=== PATIENT | female | born 1955 | race Caucasian/White ===

== ENCOUNTER 2023-10-21 07:12 | Inpatient (IN) | payer MEDICARE, MEDICAID, SELFPAY ==
[2023-10-21] VITALS (25 sets, daily range): BP systolic 137–195; BP diastolic 71–136; PULSE 78–96; RESP 15–40; TEMP 36.4–36.9; O2SAT 80–98; BMI 25.6
--- NOTE | 2023-10-21 07:17 | ED_ITS ---
HPI - Abdominal Pain General Chief Complaint: Shortness of Breath/Dyspnea Stated Complaint: abd pain, has copd not breathing well Time Seen by Provider: 10/21/23 07:15 History of Present Illness HPI narrative: Patient is a 68-year-old female past medical history of COPD intermittently on 2 L nasal cannula, comes into the ED from home for evaluation of multiple complaints. States that she has been having shortness of breath ongoing and persistent for the past 1 month. Nothing making it better or worse. States that she has not been using supplemental oxygen at home as needed, states that she has not been ?taking care of herself due to the fact that her approximately 1 month ago. States that she also started developing right upper quadrant abdominal pain yesterday. Describes as achy nothing making it better or worse. She denies any headache visual disturbances chest pain fever chills nausea vomiting or any other GI/ symptoms at this time. Not on any blood thinners no recent trauma no falls. No recent sick contacts. Patient is stating that she used to take ipratropium for her COPD but stopped due to the fact that steroids ?make her crazy. Patient does note that she does feel overall weak. Related Data Home Medications Medication Instructions Recorded Confirmed aspirin 325 mg tablet,delayed 325 mg PO QDAY ##0 12/13/10 release VITAMIN D (Vitamin D3) 1,000 unit PO QDAY ##0 04/07/11 triamterene 50 mg capsule 75 mg PO QDAY ##0 04/10/11 (Dyrenium) POTASSIUM (#POTASSIUM) 99 mg PO Q DAY ##0 07/29/11 Previous Rx's Medication Instructions Recorded levalbuterol HCl 0.63 mg/3 mL 0.63 mg (3 mL) INH Q8H PRN ##100 12/26/11 solution for nebulization (Xopenex) IPRATROPIUM BROMIDE (#ATROVENT) 0.5 mg INH QID ##1 12/27/11 triamterene 75 1 tab PO Q DAY ##30 04/24/12 mg-hydrochlorothiazide 50 mg tablet (Maxzide) DILTIAZEM HCL 60 mg PO BID ##30 04/25/12 albuterol sulfate 90 mcg/actuation 2 puff INH SEE INSTRUCTIONS ##8.5 09/17/12 aerosol inhaler (Proventil HFA) Allergies Allergy/AdvReac Type Severity Reaction Status Date / Time Penicillin Allergy Severe FAINTING Uncoded 05/31/17 12:09 Tetanus Toxoid Allergy Mild Uncoded 05/31/17 12:09 CYMBALTA Allergy Unknown Uncoded 05/31/17 12:09 Duloxetine Allergy Unknown Uncoded 05/31/17 12:09 Review of Systems Review of Systems Narrative: HEENT: Denies headache, eye drainage, eye irritation, head trauma, sore throat, voice change Cardiovascular: Denies any chest pain, palpitations, shortness of breath, tachycardia Respiratory: Positive for shortness of breath GI/: Positive for abdominal pain, Denies any nausea, vomiting, diarrhea, bright red blood per rectum, melanotic stools, urinary frequency, urinary retention, dysuria, hematuria MSK: Denies any joint pain, muscle pains, swelling Skin: Denies any rashes, lesions, discoloration Neuro: Denies any headache, lightheadedness, dizziness, fainting, weakness Psych: Denies SI/HI Exam Initial Vital Signs Initial Vital Signs: Vital Signs Pulse Rate 91 H 10/21/23 07:18 Blood Pressure 137/90 10/21/23 07:18 Pulse Oximetry 93 10/21/23 07:18 Course Orders Ordered: ED Orders 10/21/23 07:20 XR chest 1V Stat Complete Blood Count AUTO DIFF Stat Comprehensive Metabolic Panel Stat Lactate (Lactic Acid) Stat Lipase Stat MAG [Magnesium] Stat NT-proBNP (BNP-Adult 18+) Stat Prothrombin Time INR Stat Troponin I Stat EKG-12 Lead Stat Measure peak expiratory flow ONCE RT Consult Eval and Treat NOW 10/21/23 07:27 CT abdomen pelvis w con Stat 10/21/23 07:56 Cortisol Random Stat PHOS [Phosphorous] Stat Sodium Urine Random Stat TSH [Thyroid Stimulating Hormone] Stat Uric Acid Stat 10/21/23 09:17 US abdomen limited Stat Discontinued Medications Albuterol (Albuterol 2.5 Mg/3 Ml Neb (Adult)) 2.5 mg INH NOW ONE Stop: 10/21/23 07:27 Last Admin: 10/21/23 07:37 Dose: 2.5 mg Documented By: CTS Magnesium Sulfate (Magnesium Sulfate) 2 gm in 50 mls @ 150 mls/hr IV NOW ONE Stop: 10/21/23 07:50 Last Infusion: 10/21/23 08:00 Dose: Infused Documented By: ADDY Co-signed By: TYLER Admin: 10/21/23 07:37 Dose: 150 mls/hr Documented By: TYLER Co-signed By: ADDY Sodium Chloride (Normal Saline 0.9%) 1,000 mls @ 500 mls/hr IV BOLUS ONE Stop: 10/21/23 09:59 Last Infusion: 10/21/23 10:44 Dose: Infused Documented By: Admin: 10/21/23 08:17 Dose: 500 mls/hr Documented By: ADDY Morphine Sulfate (Morphine 4 Mg/Ml Inj) 2 mg IV NOW ONE Stop: 10/21/23 11:25 Vital Signs Vital signs: Vital Signs - 8 hr 10/21/23 07:18 10/21/23 07:18 10/21/23 07:20 Temperature 98.5 F Pulse Rate 91 H 90 Respiratory Rate 22 Blood Pressure 137/90 137/90 Pulse Oximetry 93 92 Oxygen Delivery Method Room Air 10/21/23 07:30 10/21/23 07:31 10/21/23 07:31 Temperature Pulse Rate 84 84 Respiratory Rate 40 H 29 H Blood Pressure 178/91 H Pulse Oximetry 95 96 Oxygen Delivery Method 10/21/23 08:01 10/21/23 08:08 10/21/23 08:09 Temperature Pulse Rate 80 78 Respiratory Rate 24 Blood Pressure Pulse Oximetry 96 Oxygen Delivery Method Room Air 10/21/23 08:09 10/21/23 08:27 10/21/23 08:27 Temperature Pulse Rate 84 Respiratory Rate 24 Blood Pressure 174/118 H 180/84 H Pulse Oximetry 92 Oxygen Delivery Method 10/21/23 08:30 10/21/23 08:30 10/21/23 09:00 Temperature Pulse Rate 79 Respiratory Rate 17 Blood Pressure 188/71 H 177/82 H Pulse Oximetry 94 Oxygen Delivery Method 10/21/23 09:00 10/21/23 09:11 10/21/23 09:11 Temperature Pulse Rate 79 86 Respiratory Rate 26 H Blood Pressure 179/85 H Pulse Oximetry 96 95 Oxygen Delivery Method 10/21/23 09:30 10/21/23 09:30 10/21/23 10:00 Temperature Pulse Rate 78 85 Respiratory Rate 19 Blood Pressure 186/136 H Pulse Oximetry 95 95 Oxygen Delivery Method 10/21/23 10:30 10/21/23 10:30 Temperature Pulse Rate 82 Respiratory Rate 15 Blood Pressure 195/87 H Pulse Oximetry 98 Oxygen Delivery Method MDM - Abdominal Pain Differential Diagnosis Differential diagnosis: Likely abdominal pain, constipation, diverticulitis, small bowel obstruction and other (Cholecystitis, electrolyte abnormality, urinary tract infection, COPD exacerbation) Medical Records Attestation: I reviewed the patient's medical records. Lab Data Attestation: I reviewed the patient's lab results. 10/21/23 07:20 10/21/23 07:20 Labs: Lab Results 10/21/23 10/21/23 10/21/23 Range/Units 07:20 07:21 08:25 WBC 9.6 (4.5-11.0) X10^3/uL RBC 5.03 (4.0-5.2) X10^6/uL Hgb 14.5 (12.0-16.0) g/dL Hct 41.8 (36-46) % MCV 83.2 (80-100) fL MCH 28.9 (26-34) PG MCHC 34.7 (30-36) % RDW 13.2 (11.6-14.8) % Plt Count 217 (150-400) X10^3/uL Neut % (Auto) 79.0 H (50-75) % Lymph % (Auto) 10.9 L (25-40) % [place] % (Auto) 9.1 (3-14) % Eos % (Auto) 0.5 L (2-4) % Baso % (Auto) 0.5 (0-2) % Neut # (Auto) 7600 H (5190-5450) /uL Lymph # (Auto) 1000 L (8152-3968) /uL [place] # (Auto) 900 (0-900) /uL Eos # (Auto) 0 (0-450) /uL Baso # (Auto) 100 (0-100) /uL PT 11.3 (9.4-12.5) SECONDS INR 1.0 (0.9-1.3) Sodium 122 L (137-145) mmol/L Potassium 3.0 L (3.4-5.1) mmol/L Chloride 85 L (98-107) mmol/L Carbon Dioxide 26 (22-32) mmol/L BUN 9 (7-17) mg/dL Creatinine 0.57 (0.52-1.04) mg/dL Estimated GFR > 60 (>60) mL/min BUN/Creatinine Ratio 15.8 (6-22) Glucose 128 H (80-110) mg/dL Lactate 1.1 (0.7-2.1) mmol/L Uric Acid 3.0 (2.5-6.2) mg/dL Calcium 9.3 (8.4-10.2) mg/dL Phosphorus 2.7 L (2.8-4.1) mg/dL Magnesium 1.8 (1.6-2.3) mg/dL Total Bilirubin 1.1 (0.2-1.3) mg/dL AST 37 H (14-36) IU/L ALT 20 (<35) IU/L Alkaline Phosphatase 73 (38-126) U/L Troponin I < 0.012 (0.01-0.034) ng/mL NT-Pro-B Natriuret Pep 179 H (<125) pg/mL Total Protein 7.5 (6.3-8.2) g/dL Albumin 4.7 (3.5-5.0) g/dL Globulin 2.8 (1.7-4.1) g/dL Albumin/Globulin Ratio 1.7 (1.0-2.8) Lipase 44 (23-300) U/L TSH 1.92 (0.47-4.68) uIU/mL Random Cortisol 24.8 ug/dL Ur Random Sodium < 5 L (30-90) mmol/L Point of care testing: Urine Dip Bedside Urine Glucose Negative Bedside Urine Bilirubin - Negative Bedside Urine Ketone - Negative Urine Specific [place] 1.005 Bedside Urine Occult Blood - Negative Bedside Urine pH 7.0 Bedside Urine Protein - Negative Bedside Urine Urobilinogen - Negative Bedside Urine Nitrite - Negative Bedside Urine Leukocytes - Negative Esterase ECG Data Attestation: I personally reviewed and interpreted this ECG as follows: Interpretation: EKG interpreted by ED physician, sinus at 86 beats per minute, QTC 459, normal axis, nonspecific ST changes, no STEMI MDM Narrative Medical decision making narrative: Patient is a 68-year-old female past medical history of COPD on intermittent oxygen presenting for multiple complaints including right upper quadrant abdominal pain and persistent shortness of breath for approximately 1 month. This was when her . States that she has not been taking care of herself as much as she should?. Patient stating that she does have prescribed O2 but does not take this at home, Chest x-ray showing no acute cardiopulmonary abnormality. On initial exam patient not in any acute respiratory distress, requiring supplemental oxygen, Lab work was showing patient hyponatremic at 122, patient appears to be euvolemic. CT scan and ultrasound ultrasound cholelithiasis with CBD dilation without signs of cholecystitis. Therefore will hold off on any antibiotics, however given hyponatremia and CBD dilation with right upper quadrant abdominal pain will require admission for electrolyte management and possible surgical intervention pending any additional imaging. The patient's management plan was discussed Dr. Trevizo, who agrees to admit the patient to their service and assumes care of this patient at this time. Full admission orders will be placed by the primary team. Discharge Plan Departure Patient Disposition: Admitted As Inpatient Clinical Impression: Acute hyponatremia, Dilated cbd, acquired Cholelithiasis Qualifiers: Cholelithiasis location: other site Biliary obstruction: without biliary obstruction Qualified Code(s): K80.80 - Other cholelithiasis without obstruction
--- NOTE | 2023-10-21 07:20 | DI.RAD.S_ITS ---
PROCEDURE: XR CHEST 1V INDICATIONS: Shortness of breath TECHNIQUE: One view of the chest was acquired. COMPARISON: None. FINDINGS: Surgical changes and devices: None. Lungs and pleura: Lungs are clear. No pleural effusions or pneumothorax. Mediastinum: Mediastinal contours appear normal. Heart size is normal. Aortic arch is calcified indicating atherosclerosis. Bones and chest wall: No suspicious bony lesions. Overlying soft tissues appear unremarkable. IMPRESSION: No acute cardiopulmonary abnormality is seen. Approved by: Heather Cedillo M.D.,Ph.D. on 10/21/2023 at 7:47
--- NOTE | 2023-10-21 07:23 | EKG_ITS ---
[address] [address] Test Date: 2023-10-21 Pat Name: Ashleigh Quintero Department: Room: Gender: Female [employer] Vehicle [employer]r: ZORA : 1955 Requested By: Order Number: [id number] Reading MD: Nahun Hallman MD Measurements Intervals [place] Rate: 86 P: 80 AL: 148 QRS: 56 QRSD: 84 T: 59 QT: 384 QTc: 459 Interpretive Statements Normal sinus rhythm Electronically Signed On 10-25-2023 8:33:07 PDT by Nahun Hallman MD
--- NOTE | 2023-10-21 07:27 | DI.CT.S_ITS ---
PROCEDURE: CT ABDOMEN PELVIS W CON INDICATIONS: abd pain, worse to ruq TECHNIQUE: After the administration of intravenous contrast, axial sections acquired from the lung bases to the pubic symphysis. Coronal and sagittal reformats were performed. For radiation dose reduction, the following was used: automated exposure control, adjustment of mA and/or kV according to patient size. COMPARISON: None. FINDINGS: Image quality: Streak metal artifact from posterior spinal fusion limits evaluation of surrounding soft tissue. Lower Chest: No significant findings. ABDOMEN: Liver: Multiple subcentimeter hepatic hypodensities are too small to characterize, probable cyst versus hemangioma. Gallbladder: Gallbladder is distended. No radiodense stones are visualized. Biliary ducts: No intrahepatic biliary ductal dilatation. Common bile duct is dilated measuring up to 9 mm in caliber. Pancreas: No ductal dilation. Spleen: Size is within normal limits. Adrenal Glands: No adrenal nodules. Kidneys and Ureters: No hydronephrosis. No solid mass. No complex renal cystic lesion which requires follow up. Stomach and Bowel: Normal colonic caliber, without significant wall thickening. Normal caliber appendix in the right lower quadrant. Peritoneum: No abnormal intraperitoneal fluid. No free air. Ventral Wall: No significant ventral hernia. Abdominal Nodes: No retroperitoneal or mesenteric adenopathy by size criteria. Vessels: Aorta and inferior vena cava are normal in size. Aorto bi iliac atherosclerotic calcifications. PELVIS: Pelvic Organs: Unremarkable. Bladder: No bladder wall thickening, accounting for underdistention. Pelvic Nodes: No enlarged lymph nodes. Miscellaneous: No inguinal hernias are seen. Bones: No aggressive osseous abnormality. Status post L4-L5 posterior spinal fusion. Degenerative changes of the visualized spine without acute vertebral body compression fracture. IMPRESSION: Distended gallbladder without radiodense stones or gallbladder wall thickening. If there is clinical concern for acute cholecystitis consider further evaluation with right upper quadrant ultrasound. Dilated common bile duct without CT evidence of choledocholithiasis. Approved by: Heather Cedillo M.D.,Ph.D. on 10/21/2023 at 8:56
[2023-10-21 07:35] LABS: Add Manual Diff / Slide Review NO; Basophils Absolute Auto 100 /uL (0-100); Basophils Percent Auto 0.5 % (0-2); Eosinophils Absolute Auto 0 /uL (0-450); Eosinophils Percent Auto 0.5 % (2-4); Hematocrit 41.8 % (36-46); Hemoglobin 14.5 g/dL (12.0-16.0); Lymphocytes Absolute Auto 1000 /uL (1100-4500); Lymphocytes Percent Auto 10.9 % (25-40); Mean Corpuscular HGB Conc 34.7 % (30-36); Mean Corpuscular Hemoglobin 28.9 PG (26-34); Mean Corpuscular Volume 83.2 fL (80-100); Monocytes Absolute Auto 900 /uL (0-900); Monocytes Percent Auto 9.1 % (3-14); Neutrophils Absolute Auto 7600 /uL (1500-7000); Platelet Count 217 X10^3/uL (150-400); Red Blood Cell Count 5.03 X10^6/uL (4.0-5.2); Red Cell Distribution Width 13.2 % (11.6-14.8); White Blood Cell Count 9.6 X10^3/uL (4.5-11.0)
[2023-10-21] MEDS: ALBUTEROL 2.5 MG/3 ML NEB (ADULT) INH ×2 (07:37→16:16)
[2023-10-21] MEDS: MAGNESIUM SULFATE 2 GM/50 ML PIGGYBACK IV (07:37)
[2023-10-21 07:40] LABS: Prothrombin Time 11.3 SECONDS (9.4-12.5)
[2023-10-21 07:45] LABS: Alanine Aminotransferase 20 IU/L (<35); Albumin 4.7 g/dL (3.5-5.0); Albumin Globulin Ratio 1.7 (1.0-2.8); Alkaline Phosphatase 73 U/L (38-126); Aspartate Aminotransferase 37 IU/L (14-36); BUN Creatinine Ratio 15.8 (6-22); Bilirubin Total 1.1 mg/dL (0.2-1.3); Blood Urea Nitrogen 9 mg/dL (7-17); Calcium 9.3 mg/dL (8.4-10.2); Carbon Dioxide 26 mmol/L (22-32); Chloride 85 mmol/L (98-107); Estimated Glomerular Filt Rate > 60 mL/min (>60); Globulin 2.8 g/dL (1.7-4.1); Glucose 128 mg/dL (80-110); HEMOLYSIS 17 (0-50); Lactate (Lactic Acid) 1.1 mmol/L (0.7-2.1); Sodium 122 mmol/L (137-145); Total Protein 7.5 g/dL (6.3-8.2)
[2023-10-21 07:56] LABS: NT-proBNP (BNP-Adult 18+) 179 pg/mL (<125); Troponin I < 0.012 ng/mL (0.01-0.034)
--- NOTE | 2023-10-21 08:01 | RT ---
neb tx started and given by Rn, pt on room air
[2023-10-21] MEDS: SODIUM CHLORIDE 0.9% 1,000 ML 500 ML IV (08:17)
[2023-10-21 08:20] LABS: Lipase 44 U/L (23-300); Magnesium 1.8 mg/dL (1.6-2.3)
[2023-10-21 09:11] LABS: Phosphorous 2.7 mg/dL (2.8-4.1)
--- NOTE | 2023-10-21 09:17 | DI.US.S_ITS ---
PROCEDURE: US ABDOMEN LIMITED INDICATIONS: Distended gallbladder on CT scan, rule out cholecystitis TECHNIQUE: Real-time scanning was performed of the abdominal and retroperitoneal organs, with image documentation. COMPARISON: [facility], CT, CT ABDOMEN PELVIS W CON, 10/21/2023, 7:53. FINDINGS: Liver: Liver is normal in size and homogeneous in echotexture. Gallbladder: Gallstones. No pericholecystic fluid. Normal wall thickness of 2 mm. Positive sonographic Wilson's sign. Biliary ducts: Intrahepatic bile ducts are non-dilated. Extrahepatic bile duct caliber measures 8.3 mm. Normal is 6-7 mm or less in diameter, or 10 mm or less post-cholecystectomy. Pancreas: Not well seen secondary to bowel gas. Miscellaneous: No free abdominal fluid. IMPRESSION: 1. Cholelithiasis without wall thickening or pericholecystic fluid to suggest acute cholecystitis. 2. CBD is dilated measuring 8.3 mm. Correlate with LFTs. Given a positive sonographic Wilson's sign and dilated CBD, if there is high clinical suspicion for early acute cholecystitis, a HIDA scan can be performed for further evaluation. Differential includes intermittent biliary colic. Dictated by: Blaine Whitney M.D. on 10/21/2023 at 9:47 Approved by: Blaine Whitney M.D. on 10/21/2023 at 9:51
[2023-10-21 09:28] LABS: Sodium Urine Random < 5 mmol/L (30-90)
[2023-10-21 09:43] LABS: Cortisol Random 24.8 ug/dL; Thyroid Stimulating Hormone 1.92 uIU/mL (0.47-4.68)
[2023-10-21] MEDS: MORPHINE 4 MG/ML INJ 2 MG IV (11:40)
--- NOTE | 2023-10-21 12:52 | P.HP_ITS ---
History of Present Illness History of Present Illness Date Patient Seen: 10/21/23 Chief complaint: abd pain, has copd not breathing well Narrative: This is a 68 year old female with COPD and HTN who is up from [place] visiting her relative in [place]. She describes 1 month of right upper quadrant pain and persistent shortness of breath where she feels like she can not get her air for less than 1 year. She is not able to really quantify the duration of any of these symptoms. She came in today because she could not sleep for the last 3 days with back pain and the abdominal pain had worsened. Her Sodium level is 122 with a K level of 3.0. She is on Dyazide, likely accounting for that drop. She is wearing nasal cannula oxygen but says it is not really helping her shortness of breath. She does mention that her ex- 1 month ago and that led to her ?not taking very good care of herself. ? She has had urinary urgency for a long time and interrupts our interview to quickly use the bedside commode with very little warning. She has had no coughing, fevers, dysuria, diarrhea. The CT scan shows cholelithiasis without cholecystitis. The Common bile duct is dilated. [facility] Medical History (Updated 10/21/23 @ 15:07 by Sundeep Agrawal MD) Unspecified essential hypertension (04/07/11) Depressive disorder, not elsewhere classified (04/07/11) DJD (degenerative joint disease) (04/07/11) Unspecified asthma (04/07/11) Tinnitus (04/07/11) Sarcoidosis (04/07/11) Hepatitis C, chronic (04/07/11) Glaucoma (04/07/11) Surgical History (Updated 10/21/23 @ 15:22 by Sundeep Agrawal MD) H/O section History of lumbar fusion History of trabeculectomy Family History (Updated 10/21/23 @ 15:09 by Sundeep Agrawal MD) Father Lung cancer Mother Diabetes mellitus Meds Home Medications and Allergies Home Medications Medication Instructions Recorded Confirmed Type aspirin 325 mg tablet,delayed 325 mg PO QDAY ##0 12/13/10 History release VITAMIN D (Vitamin D3) 1,000 unit PO QDAY ##0 04/07/11 History triamterene 50 mg capsule 75 mg PO QDAY ##0 04/10/11 History (Dyrenium) POTASSIUM (#POTASSIUM) 99 mg PO Q DAY ##0 07/29/11 History levalbuterol HCl 0.63 mg/3 mL 0.63 mg (3 mL) INH Q8H PRN ##100 12/26/11 Rx solution for nebulization (Xopenex) IPRATROPIUM BROMIDE (#ATROVENT) 0.5 mg INH QID ##1 12/27/11 Rx triamterene 75 1 tab PO Q DAY ##30 04/24/12 Rx mg-hydrochlorothiazide 50 mg tablet (Maxzide) DILTIAZEM HCL 60 mg PO BID ##30 04/25/12 Rx albuterol sulfate 90 mcg/actuation 2 puff INH SEE INSTRUCTIONS ##8.5 09/17/12 Rx aerosol inhaler (Proventil HFA) Allergies Allergy/AdvReac Type Severity Reaction Status Date / Time Penicillin Allergy Severe FAINTING Uncoded 05/31/17 12:09 Tetanus Toxoid Allergy Mild Uncoded 05/31/17 12:09 CYMBALTA Allergy Unknown Uncoded 05/31/17 12:09 Duloxetine Allergy Unknown Uncoded 05/31/17 12:09 Review of Systems Review of Systems Narrative: Positive for shortness of breath, abdominal pain, insomnia. Negative for fevers, chills, sweats, coughing, chest pain, dysuria, new allergies, sore throat. Exam Vital Signs (past 8 hours): - 10/21/23 07:18 10/21/23 07:18 10/21/23 07:20 Temperature 98.5 F Pulse Rate 91 H 90 Respiratory Rate 22 Blood Pressure 137/90 137/90 Pulse Oximetry 93 92 Oxygen Delivery Method Room Air 10/21/23 07:30 10/21/23 07:31 10/21/23 07:31 Temperature Pulse Rate 84 84 Respiratory Rate 40 H 29 H Blood Pressure 178/91 H Pulse Oximetry 95 96 Oxygen Delivery Method 10/21/23 08:01 10/21/23 08:08 10/21/23 08:09 Temperature Pulse Rate 80 78 Respiratory Rate 24 Blood Pressure Pulse Oximetry 96 Oxygen Delivery Method Room Air 10/21/23 08:09 10/21/23 08:27 10/21/23 08:27 Temperature Pulse Rate 84 Respiratory Rate 24 Blood Pressure 174/118 H 180/84 H Pulse Oximetry 92 Oxygen Delivery Method 10/21/23 08:30 10/21/23 08:30 10/21/23 09:00 Temperature Pulse Rate 79 Respiratory Rate 17 Blood Pressure 188/71 H 177/82 H Pulse Oximetry 94 Oxygen Delivery Method 10/21/23 09:00 10/21/23 09:11 10/21/23 09:11 Temperature Pulse Rate 79 86 Respiratory Rate 26 H Blood Pressure 179/85 H Pulse Oximetry 96 95 Oxygen Delivery Method 10/21/23 09:30 10/21/23 09:30 10/21/23 10:00 Temperature Pulse Rate 78 85 Respiratory Rate 19 Blood Pressure 186/136 H Pulse Oximetry 95 95 Oxygen Delivery Method 10/21/23 10:30 10/21/23 10:30 10/21/23 11:00 Temperature Pulse Rate 82 82 Respiratory Rate 15 21 Blood Pressure 195/87 H Pulse Oximetry 98 96 Oxygen Delivery Method 10/21/23 11:01 10/21/23 11:01 10/21/23 11:24 Temperature Pulse Rate 79 86 Respiratory Rate 24 19 Blood Pressure 178/74 H Pulse Oximetry 97 94 Oxygen Delivery Method 10/21/23 11:30 10/21/23 11:30 10/21/23 12:00 Temperature Pulse Rate 83 80 Respiratory Rate 22 21 Blood Pressure 176/81 H Pulse Oximetry 95 95 Oxygen Delivery Method 10/21/23 12:00 Temperature Pulse Rate Respiratory Rate Blood Pressure 170/114 H Pulse Oximetry Oxygen Delivery Method Oxygen Delivery Method Room Air Narrative Exam Narrative: Alert and oriented x3. Mild distress from a variety of symptoms including urinary urgency, shortness of breath sensation and abdominal pain. Pupils are equally round and reactive to light and accommodation. Extraocular muscles are intact. Sclerae are pink and nonicteric. Throat looks normal. There is no thyromegaly. No JVD seen. No carotid bruits are heard. Heart is regular rate and rhythm murmur. Lungs have heavy wheezing bilaterally. Abdomen is soft, bowel sounds positive, nontender, no organomegaly. Extremities have no ankle edema. Skin has no rash or bruising. Neuro exam: There is no tremor. The patient is somewhat tangential and vague in her answers to questions. Cranial nerves all test intact. Motor function is 4/5 throughout. Objective Labs 10/21/23 07:20 10/21/23 07:20 Labs: Laboratory Results - last 24 hr 10/21/23 10/21/23 10/21/23 07:20 07:21 08:25 WBC 9.6 RBC 5.03 Hgb 14.5 Hct 41.8 MCV 83.2 MCH 28.9 MCHC 34.7 RDW 13.2 Plt Count 217 Neut % (Auto) 79.0 H Lymph % (Auto) 10.9 L [place] % (Auto) 9.1 Eos % (Auto) 0.5 L Baso % (Auto) 0.5 Neut # (Auto) 7600 H Lymph # (Auto) 1000 L [place] # (Auto) 900 Eos # (Auto) 0 Baso # (Auto) 100 PT 11.3 INR 1.0 Sodium 122 L Potassium 3.0 L Chloride 85 L Carbon Dioxide 26 BUN 9 Creatinine 0.57 Estimated GFR > 60 BUN/Creatinine Ratio 15.8 Glucose 128 H Lactate 1.1 Uric Acid 3.0 Calcium 9.3 Phosphorus 2.7 L Magnesium 1.8 Total Bilirubin 1.1 AST 37 H ALT 20 Alkaline Phosphatase 73 Troponin I < 0.012 NT-Pro-B Natriuret Pep 179 H Total Protein 7.5 Albumin 4.7 Globulin 2.8 Albumin/Globulin Ratio 1.7 Lipase 44 TSH 1.92 Random Cortisol 24.8 Ur Random Sodium < 5 L Assessment & Plan Assessment & Plan narrative: This is a 68 year old female with COPD and HTN who is up from [place] visiting her relative in [place]. She describes 1 month of right upper quadrant pain and persistent shortness of breath where she feels like she can not get her air for less than 1 year. She is not able to really quantify the duration of any of these symptoms. She came in today because she could not sleep for the last 3 days with back pain and the abdominal pain had worsened. Her Sodium level is 122 with a K of 3.0. She is on Dyazide, likely accounting for that drop. Hyponatremia/Hypokalemia, present on admission, active. -Na 122, K 3.0 on 10/21/23 -Likely secondary to Dyazide -IV NS 100 ml/h for 72 hours -IV Kcl 40 meq X 1 -Daily BMP COPD, present on admission, active. -Albuterol -Solumedrol Abdominal pain, present on admission, active. Cholelithiasis -US shows Gallstones. No pericholecystic fluid. Normal wall thickness of 2 mm. Positive sonographic Wilson's sign. Intrahepatic bile ducts are non-dilated. Extrahepatic bile duct caliber measures 8.3 mm. Normal is 6-7 mm or less in diameter. -Consult General Surgery Hypertension, present on admission, Chronic. -Holding Dyazide -Add [place] if needed Lovenox for DVT prevention. Daughter is backup decision maker Time-Based Coding :: [TOTAL MINUTES] spent with patient and on the chart (including review of chart, obtaining history, exam, reviewing outside data, placing orders, documenting exam and treatment plan, and counseling patient) on [DATE].
--- NOTE | 2023-10-21 13:01 | PC.NURSE ---
This RN gave verbal report to Shira Marcial RN acute care.
[2023-10-21] MEDS: SODIUM CHLORIDE 0.9% 1,000 ML 100 ML IV ×2 (13:57→23:34)
--- NOTE | 2023-10-21 14:55 | PC.NURSE ---
Day shift: Pt in room from ED at approx 1345. BP elevated. Other VS WNL. Pt is A&Ox4. PurWik in place for comfort and ability to rest. RA 98%. Daughter in room for support.
[2023-10-21] MEDS: methylPREDNISolone 125 MG/2 ML VIAL 60 MG IV ×2 (15:46→23:35)
[2023-10-21] MEDS: MORPHINE 2 MG/ML INJ IV ×4 (15:49→23:43)
[2023-10-21] MEDS: POTASSIUM CHLORIDE 20 MEQ TAB 40 MEQ PO (16:04)
[2023-10-21 17:04] LABS: Appearance Urine UA CLEAR; Bilirubin Urine UA NEGATIVE (NEGATIVE); Color Urine UA YELLOW; Glucose Urine UA NEGATIVE (Negative); Ketones Urine UA NEGATIVE (NEGATIVE); Leukocyte Esterase Urine UA NEGATIVE (NEGATIVE); Nitrite Urine UA NEGATIVE (Negative); Occult Blood Urine UA NEGATIVE (Negative); Protein Urine UA NEGATIVE (Negative); Urobilinogen Urine UA 0.2 E.U./dL (0.2)
[2023-10-21 17:10] LABS: Bacteria Urine Occasional (0-1); Culture Indicated Urine Cult Not Indicated; RBC Urine 0-1/HPF (0-5/HPF); Squamous Epithelial Cell Urine 0-1 /HPF (0-5/HPF); Urine Volume 10mL (spun); WBC Urine 0-1/HPF (0-5/HPF)
[2023-10-21] MEDS: METOPROLOL TARTRATE 5 MG/5 ML INJ IV (20:11)
[2023-10-21] MEDS: dilTIAZem 30 MG TABLET 60 MG PO (20:13)
[2023-10-21] MEDS: TRAZODONE 50 MG TABLET 100 MG PO (20:13)
[2023-10-21] MEDS: NICOTINE 21 MG PATCH TOP (20:19)
[2023-10-22] VITALS (17 sets, daily range): BP systolic 142–196; BP diastolic 71–90; PULSE 69–93; RESP 14–80; TEMP 33.4–37.2; O2SAT 91–96; BMI 25.6
--- NOTE | 2023-10-22 | PATH_ITS ---
[facility] Accession Number: [id number] No. of containers..01 Tissue . 01 Material submitted: . gallbladder - GALLBLADDER . 01 Diagnosis: Gallbladder, cholecystectomy: Benign gallbladder with cholelithiasis. Negative for inflammation, dysplasia or malignancy. TXN 10/26/2023 1123 Local . 01 Electronically signed: . Mckinley Jimenez MD, Pathologist NPI- [id number] . 01 Gross description: . Received in formalin with two patient identifiers and gallbladder, is an intact gallbladder (9.5 x 5.6 x 4.8 cm) with an unremarkable external surface. The cystic duct margin is inked blue, and no pericystic lymph node is identified. The lumen contains multiple yellow faceted calculi measuring up to 1.0 cm in greatest dimension, not grossly obstructing the cystic duct, and admixed with dark green mucoid bile. The mucosa is green and velvety with yellow areas of discoloration, and no polyp or lesions identified. The reyes average 0.3 cm thick. Monitoring Coordinator sections to include the cystic duct margin and full thickness sections are submitted in A1. ([id number]) /MRV 10/25/2023 1825 Local . 01 Pathologist provided ICD-10: K80.20 . 01 CPT . 283714 Specimen Comment: A courtesy copy of this report has been sent to [phone] Performed at: [address] [facility] [id number], [place], [place] [id number] MD Alex Martin MD Phone: [phone]
[2023-10-22] MEDS: ALBUTEROL 2.5 MG/3 ML NEB (ADULT) INH ×2 (02:16→13:11)
[2023-10-22] MEDS: MORPHINE 2 MG/ML INJ IV ×6 (02:23→23:18)
[2023-10-22 06:24] LABS: BUN Creatinine Ratio 17.6 (6-22); Blood Urea Nitrogen 9 mg/dL (7-17); Calcium 8.7 mg/dL (8.4-10.2); Carbon Dioxide 25 mmol/L (22-32); Chloride 95 mmol/L (98-107); Estimated Glomerular Filt Rate > 60 mL/min (>60); Glucose 150 mg/dL (80-110); HEMOLYSIS < 15 (0-50); Sodium 129 mmol/L (137-145)
[2023-10-22 06:35] LABS: Potassium 2.4 mmol/L (3.4-5.1)
--- NOTE | 2023-10-22 07:31 | P.PN_ITS ---
Subjective Subjective Date Patient Seen: 10/22/23 Interval history: She is scheduled for cholecystectomy today. The potassium was 2.4 so 60 mEq of potassium chloride was given IV before surgery with a follow-up level pending. She is feeling significant right flank tenderness ?just under the ribs. ? Her sodium level is back up to 129 from an admit level of 122. Exam Vital Signs (past 8 hours): - 10/22/23 03:00 Temperature 97.1 F L Pulse Rate 86 Respiratory Rate 18 Blood Pressure 158/73 H Pulse Oximetry 94 Oxygen Flow Rate 2 Oxygen Delivery Method Nasal Cannula Oxygen Flow Rate 2 Narrative Exam Narrative: Alert and oriented x3. Appears to be in moderate distress from ongoing abdominal gallbladder pain. Her right flank is tender. She has no other abdominal tenderness. Abdomen is soft. Heart is regular rate and rhythm without murmur. Lungs are clear to auscultation bilaterally. Extremities have no ankle edema. Objective Labs 10/21/23 07:20 10/22/23 12:15 Labs: Laboratory Results - last 24 hr 10/21/23 10/21/23 10/21/23 07:20 07:21 08:25 WBC 9.6 RBC 5.03 Hgb 14.5 Hct 41.8 MCV 83.2 MCH 28.9 MCHC 34.7 RDW 13.2 Plt Count 217 Neut % (Auto) 79.0 H Lymph % (Auto) 10.9 L Wharton % (Auto) 9.1 Eos % (Auto) 0.5 L Baso % (Auto) 0.5 Neut # (Auto) 7600 H Lymph # (Auto) 1000 L [place]arton # (Auto) 900 Eos # (Auto) 0 Baso # (Auto) 100 PT 11.3 INR 1.0 Sodium 122 L Potassium 3.0 L Chloride 85 L Carbon Dioxide 26 BUN 9 Creatinine 0.57 Estimated GFR > 60 BUN/Creatinine Ratio 15.8 Glucose 128 H Lactate 1.1 Uric Acid 3.0 Calcium 9.3 Phosphorus 2.7 L Magnesium 1.8 Total Bilirubin 1.1 AST 37 H ALT 20 Alkaline Phosphatase 73 Troponin I < 0.012 NT-Pro-B Natriuret Pep 179 H Total Protein 7.5 Albumin 4.7 Globulin 2.8 Albumin/Globulin Ratio 1.7 Lipase 44 TSH 1.92 Random Cortisol 24.8 Urine Color Urine Appearance Urine pH Ur Specific [place] Urine Protein Urine Glucose (UA) Urine Ketones Urine Occult Blood Urine Nitrate Urine Bilirubin Urine Urobilinogen Ur Leukocyte Esterase Urine RBC Urine WBC Ur Squamous Epith Cells Urine Bacteria Ur Culture Indicated? Vol Urine Centrifuged Ur Random Sodium < 5 L 10/21/23 10/22/23 16:30 05:50 WBC RBC Hgb Hct MCV MCH MCHC RDW Plt Count Neut % (Auto) Lymph % (Auto) Wharton % (Auto) Eos % (Auto) Baso % (Auto) Neut # (Auto) Lymph # (Auto) [place]arton # (Auto) Eos # (Auto) Baso # (Auto) PT INR Sodium 129 L Potassium 2.4 L* Chloride 95 L Carbon Dioxide 25 BUN 9 Creatinine 0.51 L Estimated GFR > 60 BUN/Creatinine Ratio 17.6 Glucose 150 H Lactate Uric Acid Calcium 8.7 Phosphorus Magnesium Total Bilirubin AST ALT Alkaline Phosphatase Troponin I NT-Pro-B Natriuret Pep Total Protein Albumin Globulin Albumin/Globulin Ratio Lipase TSH Random Cortisol Urine Color Yellow Urine Appearance Clear Urine pH 7.0 Ur Specific [place] 1.010 Urine Protein Negative Urine Glucose (UA) Negative Urine Ketones Negative Urine Occult Blood Negative Urine Nitrate Negative Urine Bilirubin Negative Urine Urobilinogen 0.2 Ur Leukocyte Esterase Negative Urine RBC 0-1/hpf Urine WBC 0-1/hpf Ur Squamous Epith Cells 0-1 /hpf Urine Bacteria Occasional (0-1) Ur Culture Indicated? Cult not indicated Vol Urine Centrifuged 10ml (spun) Ur Random Sodium PFSH Medical History (Updated 10/22/23 @ 10:50 by Dre Barreto MD) Unspecified essential hypertension (04/07/11) Depressive disorder, not elsewhere classified (04/07/11) DJD (degenerative joint disease) (04/07/11) Unspecified asthma (04/07/11) Tinnitus (04/07/11) Sarcoidosis (04/07/11) Hepatitis C, chronic (04/07/11) Glaucoma (04/07/11) Surgical History (Updated 10/21/23 @ 15:22 by Sundeep Agrawal MD) H/O section History of lumbar fusion History of trabeculectomy Family History (Updated 10/21/23 @ 15:09 by Sundeep Agrawal MD) Father Lung cancer Mother Diabetes mellitus Social History household members: other Smoking Status: Current every day smoker alcohol intake: current Assessment & Plan Assessment & Plan narrative: This is a 68 year old female with COPD and HTN who is up from [place] visiting her relative in [place]. She describes 1 month of right upper quadrant pain and persistent shortness of breath where she feels like she can not get her air for less than 1 year. She is not able to really quantify the duration of any of these symptoms. She came in today because she could not sleep for the last 3 days with back pain and the abdominal pain had worsened. Her Sodium level is 122 with a K of 3.0. She is on Dyazide, likely accounting for that drop. Hyponatremia/Hypokalemia, present on admission, active. -Na 122, K 3.0 on 10/21/23, Na 129, K2.4, 2.7 on 10/22/23 -Likely secondary to Dyazide -IV NS 100 ml/h for 72 hours -IV Kcl 40 meq X 1, 60 meq IV plus 60 meq IV on 10/22/23 -Daily BMP COPD, present on admission, active. -Albuterol -Solumedrol Abdominal pain, present on admission, active. Cholelithiasis -US shows Gallstones. No pericholecystic fluid. Normal wall thickness of 2 mm. Positive sonographic Wilson's sign. Intrahepatic bile ducts are non-dilated. Extrahepatic bile duct caliber measures 8.3 mm. Normal is 6-7 mm or less in diameter. -laparoscopic cholecystectomy with General surgery on 10/22/2023. Hypertension, present on admission, Chronic. -Holding Dyazide -Add [place]ain if needed Lovenox for DVT prevention. Daughter is backup decision maker Time-Based Coding :: [TOTAL MINUTES] spent with patient and on the chart (including review of chart, obtaining history, exam, reviewing outside data, placing orders, documenting exam and treatment plan, and counseling patient) on [DATE].
[2023-10-22] MEDS: methylPREDNISolone 125 MG/2 ML VIAL 60 MG IV ×3 (07:45→23:18)
[2023-10-22] MEDS: POTASSIUM CHLORIDE IN WATER 10 MEQ/100 ML PIGGYBACK 100 MEQ IV ×11 (07:45→23:41)
[2023-10-22] MEDS: METOPROLOL TARTRATE 5 MG/5 ML INJ IV (08:28)
[2023-10-22] MEDS: dilTIAZem 30 MG TABLET 60 MG PO ×2 (08:29→19:46)
[2023-10-22] MEDS: NICOTINE 21 MG PATCH TOP (08:29)
--- NOTE | 2023-10-22 10:47 | PM.CN ---
History of Present Illness Consult details Date Patient Seen: 10/22/23 Time Patient Seen: 10:47 Chief complaint: abd pain, has copd not breathing well Narrative: Ashleigh is a 68-year-old woman with COPD and hypertension who presents with 1 month of right upper quadrant abdominal pain. It has been getting progressively worse. The pain is worse after eating. She had a CT and an ultrasound which showed gallstones and a very distended gallbladder. Her LFTs have been normal. Meds Home Medications and Allergies Home Medications Medication Instructions Recorded Confirmed Type VITAMIN D (Vitamin D3) 1,000 unit PO QDAY ##0 04/07/11 History triamterene 50 mg capsule 75 mg PO QDAY ##0 04/10/11 History (Dyrenium) POTASSIUM (#POTASSIUM) 99 mg PO Q DAY ##0 07/29/11 History levalbuterol HCl 0.63 mg/3 mL 0.63 mg (3 mL) INH Q8H PRN ##100 12/26/11 Rx solution for nebulization (Xopenex) IPRATROPIUM BROMIDE (#ATROVENT) 0.5 mg INH QID ##1 12/27/11 10/21/23 Rx triamterene 75 1 tab PO Q DAY ##30 04/24/12 Rx mg-hydrochlorothiazide 50 mg tablet (Maxzide) albuterol sulfate 90 mcg/actuation 2 puff INH SEE INSTRUCTIONS ##8.5 09/17/12 Rx aerosol inhaler (Proventil HFA) DILTIAZEM HCL 60 mg PO BID 10/21/23 10/21/23 History albuterol sulfate 90 mcg/actuation 2 puff inhalation Q6H PRN wheezing 10/21/23 10/21/23 History aerosol inhaler Allergies Allergy/AdvReac Type Severity Reaction Status Date / Time Penicillin Allergy Severe FAINTING Uncoded 05/31/17 12:09 Tetanus Toxoid Allergy Mild Uncoded 05/31/17 12:09 CYMBALTA Allergy Unknown Uncoded 05/31/17 12:09 Duloxetine Allergy Unknown Uncoded 05/31/17 12:09 Exam Vital Signs (past 8 hours): - 10/22/23 03:00 10/22/23 08:29 10/22/23 08:39 Temperature 97.1 F L Pulse Rate 86 69 Respiratory Rate 18 Blood Pressure 158/73 H 196/90 H Pulse Oximetry 94 Oxygen Delivery Method Nasal Cannula Oxygen Flow Rate 2 10/22/23 09:00 10/22/23 09:56 Temperature 98.0 F Pulse Rate 69 Respiratory Rate 16 Blood Pressure 196/90 H 173/80 H Pulse Oximetry 94 Oxygen Delivery Method Oxygen Flow Rate 2 Oxygen Delivery Method Nasal Cannula Oxygen Flow Rate 2 Narrative Exam Narrative: Abdomen is tender to palpation in the right upper quadrant with a positive Wilson sign Objective Labs 10/21/23 07:20 10/22/23 05:50 Labs: Laboratory Results - last 24 hr 10/21/23 10/22/23 16:30 05:50 Sodium 129 L Potassium 2.4 L* Chloride 95 L Carbon Dioxide 25 BUN 9 Creatinine 0.51 L Estimated GFR > 60 BUN/Creatinine Ratio 17.6 Glucose 150 H Calcium 8.7 Urine Color Yellow Urine Appearance Clear Urine pH 7.0 Ur Specific [place] 1.010 Urine Protein Negative Urine Glucose (UA) Negative Urine Ketones Negative Urine Occult Blood Negative Urine Nitrate Negative Urine Bilirubin Negative Urine Urobilinogen 0.2 Ur Leukocyte Esterase Negative Urine RBC 0-1/hpf Urine WBC 0-1/hpf Ur Squamous Epith Cells 0-1 /hpf Urine Bacteria Occasional (0-1) Ur Culture Indicated? Cult not indicated Vol Urine Centrifuged 10ml (spun) [facility] Medical History (Updated 10/22/23 @ 10:50 by Dre Barreto MD) Unspecified essential hypertension (04/07/11) Depressive disorder, not elsewhere classified (04/07/11) DJD (degenerative joint disease) (04/07/11) Unspecified asthma (04/07/11) Tinnitus (04/07/11) Sarcoidosis (04/07/11) Hepatitis C, chronic (04/07/11) Glaucoma (04/07/11) Surgical History (Updated 10/21/23 @ 15:22 by Sundeep Agrawal MD) H/O section History of lumbar fusion History of trabeculectomy Family History (Updated 10/21/23 @ 15:09 by Sundeep Agrawal MD) Father Lung cancer Mother Diabetes mellitus Social History household members: other Tobacco & Substance Use Smoking Status: Current every day smoker alcohol intake: current Assessment & Plan Assessment and plan (1) Acute cholecystitis: Status: Acute Plan I recommend laparoscopic cholecystectomy for acute cholecystitis. We reviewed the risks and benefits and she would like to proceed. Time-Based Coding :: [TOTAL MINUTES] spent with patient and on the chart (including review of chart, obtaining history, exam, reviewing outside data, placing orders, documenting exam and treatment plan, and counseling patient) on [DATE].
[2023-10-22 12:35] LABS: BUN Creatinine Ratio 20.8 (6-22); Blood Urea Nitrogen 10 mg/dL (7-17); Calcium 8.9 mg/dL (8.4-10.2); Carbon Dioxide 26 mmol/L (22-32); Chloride 96 mmol/L (98-107); Estimated Glomerular Filt Rate > 60 mL/min (>60); Glucose 141 mg/dL (80-110); HEMOLYSIS < 15 (0-50); Sodium 130 mmol/L (137-145)
[2023-10-22 12:39] LABS: Potassium 2.7 mmol/L (3.4-5.1)
[2023-10-22] MEDS: LACTATED RINGERS 1,000 ML 42 ML IV (13:08)
--- NOTE | 2023-10-22 13:21 | SUR.HOLD ---
Anesthesia informed of repeat potassium at 2.7
--- NOTE | 2023-10-22 13:47 | CM.DANOTE ---
Initial DCP Assessment Note Pt is a 68 yo female, resident of [place], visiting her daughter in [place], arrives with SOB, hyponatremia, found to have gallstones and has been scheduled for lap sofía this afternoon with Dr Barreto. PCP: Unknown Payer: [facility] MCR Reviewed chart, met w/patient to introduce self and role. Patient reports she lives independently approx 4 hours away in [place]. Patient reports concern about her discharge plan, states she needs to either stay with daughter, who lives in a small studio apt in [place], or drive home with daughter upon discharge. Encouraged patient to wait and see what her immediate needs will be upon discharge. Patient agreed. Anticipate discharge home w/family to assist; close outpatient f/u recommended. CM team will plan to follow clinical course closely in case any DC needs or concerns arise. TOY Collins Discharge Planning/Care Management CM Discharge Assessment Start: 10/22/23 13:44 Freq: Status: Active Protocol: Document 10/22/23 13:44 MADHURI (Rec: 10/22/23 13:47 MADHURI [id number]) Discharge Planning Assessment Assigned Painter Hand TOY Tyson DPOA/Assigned Designee Name wyatt Mcgovern Contact Information [phone] Advance Directives? No History Provided By Patient,Medical Record Prior Living Arrangements House Household Members other Type of transporation used prior to Drives own vehicle admit Independent with ADL's Yes Is patient alert and oriented? Yes Barriers to Discharge Yes Comment Needs TBD. Lives 4 hrs away, [place]. Dtr only has small studio apt in [place]. Discharge Plan Home Transportation Arrangement Daughter Referrals Initiated None needed
[2023-10-22] MEDS: CEFAZOLIN 2 GM/100 ML PREMIX 100 ML IV (13:55)
[2023-10-22] MEDS: BUPIVACAINE 0.5% (PF) 30 ML, EPINEPHrine 0.15 MG INJ (14:15)
--- NOTE | 2023-10-22 14:17 | SUR.OPER ---
Supine on padded OR bed, head on pillow, safety belt at thigh, left arm padded and tucked at side. Right arm secured on padded arm board <90 degrees abduction. Legs uncrossed. Padded footboard in place. Tape over blanket to secure lower legs.
--- NOTE | 2023-10-22 14:55 | P.OP_ITS ---
Operative Date/Time/Diagnoses Date of procedure: 10/22/23 Time of procedure: 14:55 Pre-op diagnosis: Acute cholecystitis Post-op diagnosis: same Procedure & Clinicians Procedure: Laparoscopic cholecystectomy Same procedure as scheduled: Yes Surgeon: Dre Barreto Anesthesia Type: General Operative Notes Procedure in detail: The patient was given preoperative antibiotics. The patient was brought to the operating room and placed on the table in the supine position. General endotracheal anesthesia was induced. The abdomen was prepped and draped. A time-out was performed. We made a 1 cm infraumbilical incision. We dissected down to the base of the umbilical stalk using cautery. We grasped the umbilical stalk with a Perfecto clamp to elevate the abdominal wall. We scored the fascia in the midline with cautery. We pierced the peritoneum with a Peon clamp. The Liz port was placed and the abdomen was insufflated to 15 mmHg. A 5 mm 30 degree laparoscopic was inserted. There was no evidence of any injury from the entry. Next, we placed 5 mm ports in the subxiphoid position and right upper quadrant at the midclavicular line and anterior axillary line. The patient was then positioned in reverse Trendelenburg and the table was tilted to the left. The gallbladder was grasped at the dome and retracted cephalad. We divided some adhesions from mesenteric fatty tissue to the gallbladder. We then dissected the cystic structures with a combination of hook cautery and blunt dissection. We obtained a critical view. We placed clips on the cystic duct and artery and divided the cystic duct and artery sharply between the clips. The gallbladder w as then dissected off the liver and placed in a specimen retrieval bag. We irrigated the right upper quadrant and all the aspirate returned clear. We then removed the 5 mm ports under direct vision we removed the Liz port. We then injected some local into the fascia and closed the fascia with 2 interrupted 0 Vicryl sutures. The skin incisions were closed with 4-0 Monocryl and Steri- Strips were applied. Band-Aids were applied over the Steri-Strips. EBL: 10 mL Specimen: Gallbladder and contents Post-operative Condition: stable Disposition: PACU
[2023-10-22] MEDS: ONDANSETRON 4 MG/2 ML INJ IV (15:41)
[2023-10-22] MEDS: OXYCODONE IR 5 MG TABLET PO ×2 (15:41→18:38)
[2023-10-22] MEDS: SODIUM CHLORIDE 0.9% 1,000 ML 100 ML IV (16:10)
[2023-10-22 16:25] LABS: HEMOLYSIS < 15 (0-50); Magnesium 1.8 mg/dL (1.6-2.3); Potassium 2.8 mmol/L (3.4-5.1)
[2023-10-22] MEDS: TRAZODONE 50 MG TABLET 100 MG PO (19:46)
[2023-10-23] VITALS (11 sets, daily range): BP systolic 140–162; BP diastolic 69–76; PULSE 80–95; RESP 18–24; TEMP 36.4–36.9; O2SAT 87–96
[2023-10-23] MEDS: POTASSIUM CHLORIDE IN WATER 10 MEQ/100 ML PIGGYBACK 100 MEQ IV (00:41)
[2023-10-23] MEDS: SODIUM CHLORIDE 0.9% 1,000 ML 100 ML IV ×2 (02:29→10:16)
[2023-10-23] MEDS: OXYCODONE IR 5 MG TABLET PO ×2 (03:21→10:16)
[2023-10-23] MEDS: MORPHINE 2 MG/ML INJ IV ×2 (05:01→08:30)
[2023-10-23] MEDS: methylPREDNISolone 125 MG/2 ML VIAL 60 MG IV (06:58)
[2023-10-23 07:12] LABS: BUN Creatinine Ratio 24.2 (6-22); Blood Urea Nitrogen 16 mg/dL (7-17); Calcium 8.5 mg/dL (8.4-10.2); Carbon Dioxide 25 mmol/L (22-32); Chloride 97 mmol/L (98-107); Estimated Glomerular Filt Rate > 60 mL/min (>60); Glucose 142 mg/dL (80-110); HEMOLYSIS < 15 (0-50); Magnesium 1.9 mg/dL (1.6-2.3); Potassium 3.4 mmol/L (3.4-5.1); Sodium 127 mmol/L (137-145)
[2023-10-23] MEDS: ALBUTEROL 2.5 MG/3 ML NEB (ADULT) INH ×4 (07:13→22:36)
[2023-10-23] MEDS: NICOTINE 21 MG PATCH TOP (08:30)
[2023-10-23] MEDS: dilTIAZem 30 MG TABLET 60 MG PO ×2 (08:30→20:55)
--- NOTE | 2023-10-23 09:20 | PM.PN.1 ---
Subjective Subjective Date Patient Seen: 10/23/23 Time Patient Seen: 09:20 Interval history: She still feels some right upper quadrant pain but overall improved. Tolerating her diet. Exam Vital Signs (past 8 hours): - 10/23/23 03:45 10/23/23 07:14 10/23/23 08:00 Temperature 98.1 F 97.6 F Pulse Rate 80 84 82 Respiratory Rate 18 24 22 Blood Pressure 162/76 H 143/69 H Pulse Oximetry 96 87 L 92 Oxygen Delivery Method Nasal Cannula Oxygen Flow Rate 4 4 4 Fraction of Inspired Oxygen 36 10/23/23 08:00 10/23/23 08:30 Temperature Pulse Rate 85 Respiratory Rate Blood Pressure 143/69 H Pulse Oximetry Oxygen Delivery Method Nasal Cannula Oxygen Flow Rate Fraction of Inspired Oxygen Fraction of Inspired Oxygen 36 SaO2/FiO2 Ratio 241 Oxygen Delivery Method Nasal Cannula Oxygen Flow Rate 4 Const General: No acute distress Resp Effort & Inspection: normal respiratory effort Objective Labs 10/21/23 07:20 10/23/23 06:50 Labs: Laboratory Results - last 24 hr 10/22/23 10/22/23 10/23/23 12:15 16:00 06:50 Sodium 130 L 127 L Potassium 2.7 L* 2.8 L 3.4 Chloride 96 L 97 L Carbon Dioxide 26 25 BUN 10 16 Creatinine 0.48 L 0.66 Estimated GFR > 60 > 60 BUN/Creatinine Ratio 20.8 24.2 H Glucose 141 H 142 H Calcium 8.9 8.5 Magnesium 1.8 1.9 PFSH Medical History (Updated 10/22/23 @ 10:50 by Dre Barreto MD) Unspecified essential hypertension (04/07/11) Depressive disorder, not elsewhere classified (04/07/11) DJD (degenerative joint disease) (04/07/11) Unspecified asthma (04/07/11) Tinnitus (04/07/11) Sarcoidosis (04/07/11) Hepatitis C, chronic (04/07/11) Glaucoma (04/07/11) Surgical History (Updated 10/21/23 @ 15:22 by Sundeep Agrawal MD) H/O section History of lumbar fusion History of trabeculectomy Family History (Updated 10/21/23 @ 15:09 by Sundeep Agrawal MD) Father Lung cancer Mother Diabetes mellitus Social History household members: other Smoking Status: Current every day smoker alcohol intake: current Assessment & Plan Assessment and plan (1) Acute cholecystitis: Status: Acute Plan Doing well following laparoscopic cholecystectomy Home when metabolic and social issues are resolved. Time-Based Coding :: [TOTAL MINUTES] spent with patient and on the chart (including review of chart, obtaining history, exam, reviewing outside data, placing orders, documenting exam and treatment plan, and counseling patient) on [DATE].
--- NOTE | 2023-10-23 12:08 | CM.DPC ---
DCP Cont. Reviewed EMR and team rounds for status updates. Pt is having some low sodium today, and is working on advancing diet. If she is able to improve, she will plan to d/c later today, otherwise, we will monitor for home d/c tomorrow 10/23.
[2023-10-23] MEDS: MYCOPHENOLATE MOFETIL 500 MG TABLET 1500 MG PO ×2 (13:24→20:54)
[2023-10-23] MEDS: predniSONE 20 MG TABLET 40 MG PO (13:24)
[2023-10-23] MEDS: CYCLOBENZAPRINE 10 MG TABLET PO ×2 (13:25→20:54)
--- NOTE | 2023-10-23 14:40 | P.PN_ITS ---
Subjective Subjective Date Patient Seen: 10/23/23 Interval history: POD #1 s/p lap sofía. Hyponatremia is a bit worse today but she is tolerating a diet. Was able to find outside records. She has severe COPD with chronic respiratory failure, usually on 5L. She is at 3.5 today. She does still feel a bit short of breath, but also was on dulera and this was not replaced with formulary meds. She is on Triamterine HCTZ for BP along with diltiazem which is held for her low sodium. It does appear she has a chronically low sodium level in review of labs from Outside institutions. Exam Vital Signs (past 8 hours): - 10/23/23 07:14 10/23/23 08:00 10/23/23 08:00 Temperature 97.6 F Pulse Rate 84 82 Respiratory Rate 24 22 Blood Pressure 143/69 H Pulse Oximetry 87 L 92 Oxygen Delivery Method Nasal Cannula Nasal Cannula Oxygen Flow Rate 4 4 Fraction of Inspired Oxygen 36 10/23/23 08:30 10/23/23 12:00 Temperature 98.4 F Pulse Rate 85 83 Respiratory Rate 18 Blood Pressure 143/69 H 141/70 H Pulse Oximetry 92 Oxygen Delivery Method Oxygen Flow Rate 3.5 Fraction of Inspired Oxygen Fraction of Inspired Oxygen 36 SaO2/FiO2 Ratio 241 Oxygen Delivery Method Nasal Cannula Oxygen Flow Rate 3.5 Narrative Exam Narrative: Alert and oriented x3. No acute distress, eating lunch. Heart is regular rate and rhythm without murmur. Lungs are clear to auscultation bilaterally. Extremities have no ankle edema. Objective Labs 10/21/23 07:20 10/23/23 06:50 Labs: Laboratory Results - last 24 hr 10/22/23 10/23/23 16:00 06:50 Sodium 127 L Potassium 2.8 L 3.4 Chloride 97 L Carbon Dioxide 25 BUN 16 Creatinine 0.66 Estimated GFR > 60 BUN/Creatinine Ratio 24.2 H Glucose 142 H Calcium 8.5 Magnesium 1.8 1.9 [facility] Medical History (Updated 10/22/23 @ 10:50 by Dre Barreto MD) Unspecified essential hypertension (04/07/11) Depressive disorder, not elsewhere classified (04/07/11) DJD (degenerative joint disease) (04/07/11) Unspecified asthma (04/07/11) Tinnitus (04/07/11) Sarcoidosis (04/07/11) Hepatitis C, chronic (04/07/11) Glaucoma (04/07/11) Surgical History (Updated 10/21/23 @ 15:22 by Sundeep Agrawal MD) H/O section History of lumbar fusion History of trabeculectomy Family History (Updated 10/21/23 @ 15:09 by Sundeep Agrawal MD) Father Lung cancer Mother Diabetes mellitus Social History household members: other Smoking Status: Current every day smoker alcohol intake: current Assessment & Plan Assessment & Plan narrative: This is a 68 year old female with COPD, chronic hypoxic respiratory failure on 5L O2 typically, 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 Hyponatremia/Hypokalemia, present on admission, active. -sodium was a bit better yesterday, slightly worse today at 127. Will continue to monitor for now. Encouraged PO intake. she appears to have history of chronic hyponatremia but usually sodium in the low 130s. Will keep to make sure not worsening tomorrow after surgery yesterday. -home HCTZ w/ triamterine on hold. -potassium is slowly improving with repletion. -expect electrolytes COPD with chronic hypoxic respiratory failure with possible exacerbation, present on admission, active. -on 5L at home per outside pulmonology notes reviewed today. -Can continue oral predisone for possible exacerbation, total 5 day course of steroids. -added pulmicort and scheduled albuterol to replace home dulera. -continue albuterol prn for dyspnea Cholecystitis - now POD#1 s/p lap sofía, doing well. Tolerating a diet thus far. - appreciate surgical management. - no need for ongoing antibiotics at this time. Hypertension, present on admission, Chronic. -hold home triamterine HCTZ in setting of hyponatremia -continue home diltiazem -consider additional agent if hypertensive. 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 - continue home mycophenylate Lovenox for DVT prevention. Daughter is backup decision maker Code: Full, surrogate is patient's spouse DVT: Lovenox daily ordered for tomorrow, hold until sufficiently post-op. I have utilized all available immediate resources to obtain, update, or review the patient's current medications. Dispo: patient admitted under inpatient status. Likely discharge home tomorrow if electrolytes remain stable / improved with continued diet. Keep today over concern for worsening sodium level. Additional history obtained via discussions with the previous hospitalist and patient's daughters along with extensive review of outside hospital / clinic records. These discussions and reading contributed to the creation of the above assessment and plan. I have reviewed patient's presenting documentation, labs, and imaging personally. Time-Based Coding :: [TOTAL MINUTES] spent with patient and on the chart (including review of chart, obtaining history, exam, reviewing outside data, placing orders, documenting exam and treatment plan, and counseling patient) on [DATE].
[2023-10-23] MEDS: OXYCODONE IR 5 MG TABLET 10 MG PO ×2 (14:55→20:55)
[2023-10-23] MEDS: BUDESONIDE 0.5 MG/2 ML NEB INH (19:29)
[2023-10-23] MEDS: TRAZODONE 50 MG TABLET 100 MG PO (20:55)
[2023-10-23 21:19] LABS: Hematocrit 41.1 % (36-46)
--- NOTE | 2023-10-23 21:59 | PC.NURSE ---
^ abdominal bruising (see RN Cindy nurse note)
--- NOTE | 2023-10-23 22:12 | PC.NURSE ---
NOC: Upon assessment, observed disperse ecchymosis centered around an area of darker ecchymosis under pt's midline lap sofía site (see wound photo uploaded by BALTAZAR Perez) on lower abdomen that was not present previous NOC shift. No documentation in surgeon or hospitalist report 10/22. Notified MD Barreto at 2038 via phone, who stated that he had not looked at patient's abdomen during assessment. Pt belly is non-tender and soft, pt states no pain upon palpation. Pt had not noticed bruising until brought to her attention and was not sure when it appeared. MD ordered urgent H/H lab draw, H/H resulted WNL. Pt resting comfortably. Will continue to monitor.
[2023-10-24 01:30] VITALS: BP 151/71; PULSE 85; RESP 18; TEMP 36.2; O2SAT 94
[2023-10-24] MEDS: MORPHINE 2 MG/ML INJ IV (01:55)
[2023-10-24] MEDS: OXYCODONE IR 5 MG TABLET 10 MG PO (05:59)
[2023-10-24 06:16] LABS: Add Manual Diff / Slide Review NO; Basophils Absolute Auto 0 /uL (0-100); Basophils Percent Auto 0.1 % (0-2); Eosinophils Absolute Auto 0 /uL (0-450); Hematocrit 41.5 % (36-46); Hemoglobin 14.2 g/dL (12.0-16.0); Lymphocytes Absolute Auto 700 /uL (1100-4500); Lymphocytes Percent Auto 4.5 % (25-40); Mean Corpuscular HGB Conc 34.1 % (30-36); Mean Corpuscular Hemoglobin 28.7 PG (26-34); Mean Corpuscular Volume 83.9 fL (80-100); Monocytes Absolute Auto 1200 /uL (0-900); Monocytes Percent Auto 7.9 % (3-14); Neutrophils Absolute Auto 13500 /uL (1500-7000); Neutrophils Percent Auto 87.5 % (50-75); Platelet Count 207 X10^3/uL (150-400); Red Blood Cell Count 4.94 X10^6/uL (4.0-5.2); Red Cell Distribution Width 13.5 % (11.6-14.8); White Blood Cell Count 15.4 X10^3/uL (4.5-11.0)
[2023-10-24 06:27] LABS: BUN Creatinine Ratio 24.4 (6-22); Blood Urea Nitrogen 19 mg/dL (7-17); Carbon Dioxide 28 mmol/L (22-32); Chloride 94 mmol/L (98-107); Estimated Glomerular Filt Rate > 60 mL/min (>60); Glucose 113 mg/dL (80-110); HEMOLYSIS < 15 (0-50); Potassium 3.2 mmol/L (3.4-5.1); Sodium 128 mmol/L (137-145)
[2023-10-24 08:00] VITALS: BP 199/71; PULSE 86; RESP 20; TEMP 36.4; O2SAT 92
[2023-10-24 08:51] VITALS: BP 199/71; PULSE 86
[2023-10-24] MEDS: NICOTINE 21 MG PATCH TOP (08:51)
[2023-10-24] MEDS: dilTIAZem 30 MG TABLET 60 MG PO (08:51)
[2023-10-24] MEDS: predniSONE 20 MG TABLET 40 MG PO (08:52)
[2023-10-24] MEDS: MYCOPHENOLATE MOFETIL 500 MG TABLET 1500 MG PO (08:52)
[2023-10-24 09:09] VITALS: BP 169/74
--- NOTE | 2023-10-24 09:26 | PM.DS.1 ---
History of Present Illness History of Present Illness Date Patient Seen: 10/24/23 Time Patient Seen: 09:26 Chief complaint: abd pain, has copd not breathing well Narrative: This is a 68 year old female with COPD and HTN who is up from [place] visiting her relative in [place]. She describes 1 month of right upper quadrant pain and persistent shortness of breath where she feels like she can not get her air for less than 1 year. She is not able to really quantify the duration of any of these symptoms. She came in today because she could not sleep for the last 3 days with back pain and the abdominal pain had worsened. Her Sodium level is 122 with a K level of 3.0. She is on Dyazide, likely accounting for that drop. She is wearing nasal cannula oxygen but says it is not really helping her shortness of breath. She does mention that her ex- 1 month ago and that led to her ?not taking very good care of herself. ? She has had urinary urgency for a long time and interrupts our interview to quickly use the bedside commode with very little warning. She has had no coughing, fevers, dysuria, diarrhea. The CT scan shows cholelithiasis without cholecystitis. The Common bile duct is dilated. Discharge Providers Provider Date of admission: 10/21/23 11:37 Discharge Date: 10/24/23 Consults: 10/21/23 15:37 Consult to General Surgery Routine Comment: Consulting Provider: Dre Barreto Reason for consultation: Cholelithiasis Has provider been notified: Yes Discharge provider: Terrance Stone DO Summary Hospital Course Discharge Diagnosis: Hyponatremia/Hypokalemia, present on admission, active. COPD with chronic hypoxic respiratory failure with possible exacerbation, present on admission, active. Cholecystitis Hypertension, present on admission, Chronic. 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 Her electrolyte abnormalities improved with potassium repletion and fluids. She had a laparoscopic cholecystectomy and was able to tolerate a diet with stable / improving electrolytes after. Her care recently has appeared disjointed. Much time was spent educating patient on her uveitis, COPD, and HTN medications which she was appreciative of. Transport was arranged ultimately for discharge home, and she was clinically doing well with improved oxygen from her baseline (3.5 L at discharge compared to outpatient pulm notes stating 5L). She was initially treated for possible COPD exacerbation, which is still possible but given improvement she was not discharged on continued steroids. Recommend ongoing follow up with primary care as previously scheduled. She may need to follow up with a surgeon more close to home given her O2 requirements and difficulites with transport. Additionally with regards to patient's triamterine-HCTZ this was elected to be continued on discharge. Patient reported wanting to restart a diuretic after much discussion for blood pressure. She has a mild chronic hyponatremia on outpatient labs that were able to be reviewed. Given hypokalemia on admission, change to a loop diuretic was also fraught. Given prior stability on her home BP medication, for now recommend continuing this, with plan for outpatient ongoing lab evaluation and BP management with primary care. Time Spent with Patient Time spent: Greater than 30 minutes Exam Vital Signs (past 8 hours): - 10/24/23 01:30 10/24/23 08:00 10/24/23 08:51 Temperature 97.2 F L 97.6 F Pulse Rate 85 86 86 Respiratory Rate 18 20 Blood Pressure 151/71 H 199/71 H 199/71 H Pulse Oximetry 94 92 Oxygen Flow Rate 3.5 3.5 10/24/23 09:09 Temperature Pulse Rate Respiratory Rate Blood Pressure 169/74 H Pulse Oximetry Oxygen Flow Rate Fraction of Inspired Oxygen 32 SaO2/FiO2 Ratio 296 Oxygen Delivery Method Nasal Cannula,Humidification Oxygen Flow Rate 3.5 Narrative Exam Narrative: Alert and oriented x3. No acute distress, eating lunch. Heart is regular rate and rhythm without murmur. Lungs are clear to auscultation bilaterally. Extremities have no ankle edema. Objective Labs 10/24/23 05:55 10/24/23 05:55 Labs: Laboratory Results - last 24 hr 10/23/23 10/24/23 21:00 05:55 WBC 15.4 H RBC 4.94 Hgb 14.0 14.2 Hct 41.1 41.5 MCV 83.9 MCH 28.7 MCHC 34.1 RDW 13.5 Plt Count 207 Neut % (Auto) 87.5 H Lymph % (Auto) 4.5 L [place] % (Auto) 7.9 Eos % (Auto) 0.0 L Baso % (Auto) 0.1 Neut # (Auto) 23495 H Lymph # (Auto) 700 L [place] # (Auto) 1200 H Eos # (Auto) 0 Baso # (Auto) 0 Sodium 128 L Potassium 3.2 L Chloride 94 L Carbon Dioxide 28 BUN 19 H Creatinine 0.78 Estimated GFR > 60 BUN/Creatinine Ratio 24.4 H Glucose 113 H Calcium 9.0 PFSH Medical History (Updated 10/22/23 @ 10:50 by Dre Barreto MD) Unspecified essential hypertension (04/07/11) Depressive disorder, not elsewhere classified (04/07/11) DJD (degenerative joint disease) (04/07/11) Unspecified asthma (04/07/11) Tinnitus (04/07/11) Sarcoidosis (04/07/11) Hepatitis C, chronic (04/07/11) Glaucoma (04/07/11) Surgical History (Updated 10/21/23 @ 15:22 by Sundeep Agrawal MD) H/O section History of lumbar fusion History of trabeculectomy Family History (Updated 10/21/23 @ 15:09 by Sundeep Agrawal MD) Father Lung cancer Mother Diabetes mellitus Social History household members: other Smoking Status: Current every day smoker alcohol intake: current Discharge Plan Discharge Plan Patient Disposition: Home Provider Discharge Comment: No lifting greater than 20 lb for 2 weeks. Okay to remove the outer dressing and shower after 24 hours. Steri-Strips can get wet in the shower. Remove the Steri-Strips after 5-7 days. You will receive a call from [facility] office within the next week to arrange follow up. There are no changes to your chronic medications. Discharge orders & Medications Prescriptions: Continued VITAMIN D (Vitamin D3) 1,000 unit PO QDAY Qty: 0 POTASSIUM (#POTASSIUM) 99 mg PO Q DAY Qty: 0 albuterol sulfate [Proventil HFA] 90 MCG/PUFF HFA aerosol inhaler 2 puff INH SEE INSTRUCTIONS Qty: 8.5 0RF DILTIAZEM HCL 120 mg 60 mg PO BID albuterol sulfate 90 mcg/actuation HFA aerosol inhaler 2 puff inhalation Q6H PRN (Reason: wheezing) triamterene-hydrochlorothiazid 75-50 mg tablet 1 tab PO DAILY Dulera 200-5 mcg/actuation HFA aerosol inhaler 2 puff inhalation BID mycophenolate mofetil 500 mg tablet 1.5 g PO BID Diet/Activity/Treatments Diet: Diet as Tolerated and Regular Activity: As tolerated, no restrictions Oxygen: continue supplemental oxygen, goal 89-95% while on supplemental therapy. Visit Report/Discharge Packet Instructions: How to Prevent Falls, DI for Prescription Opioid Use, DI for Laparoscopic Cholecystectomy Stand Alone Forms: Patient Portal/API, Stroke Signs & Symptoms
[2023-10-24] MEDS: POTASSIUM CHLORIDE 20 MEQ TAB 40 MEQ PO (10:14)
--- NOTE | 2023-10-24 10:32 | CM.DPC ---
DCP Cont. Reviewed EMR and team rounds for status updates. Pt has been medically cleared for discharge. RT was able to contact the public health representative from her O2 company re: her need for O2 on her way back to [place], they will drop off an O2 tank for pt to take in the car with her within the next 1-2 hours. Her insurance company is setting up medical transport. No further DCP needs identified at this time.
[2023-10-24 11:22] VITALS: O2SAT 98
[2023-10-24] MEDS: ALBUTEROL 2.5 MG/3 ML NEB (ADULT) INH (11:29)
[2023-10-24] MEDS: OXYCODONE ER 10 MG TAB 20 MG PO (12:50)
--- NOTE | 2023-10-24 14:01 | PC.NURSE ---
Day shift: Discharge instructions gone over with patient and patient's daughter. Patient and daughter stated understanding. RT called oxygen rep who brought patient car adapter in order for patient's home O2 device to last the length of her ride home. Patient's daughter plans to drive patient home. PIV removed prior to discharge. All belongings with patient, including patient's belongings that were placed in the safe. PCT Christy escorted patient via wheelchair to exit.
== END 2023-10-24 13:55 | disposition home or self-care (01) | DRG 418 ==
LOC: ED 11:24 → AC 11:38
PROVIDERS: Internal Medicine; Surgery; Admitting Provider Family Medicine; Emergency Provider Student in an Organized Health Care Education/Training Program; Referring Provider Student in an Organized Health Care Education/Training Program; Visit Provider Family Medicine
PROC: 0FT44ZZ Resection of Gallbladder, Percutaneous Endoscopic Approach (ICD-10-PCS; CPT 47562; principal; 2023-10-22 13:00)
DX: K80.00 Calculus of gallbladder with acute cholecystitis without obstruction (principal); D84.821 Immunodeficiency due to drugs; E87.1 Hypo-osmolality and hyponatremia; H20.9 Unspecified iridocyclitis; J44.1 Chronic obstructive pulmonary disease with (acute) exacerbation; J96.11 Chronic respiratory failure with hypoxia; E87.6 Hypokalemia; I10 Essential (primary) hypertension; F17.200 Nicotine dependence, unspecified, uncomplicated; Z79.69 Long term (current) use of other immunomodulators and immunosuppressants
CPT/HCPCS: 36415; 47562; 71045; 74177; 76705; 80048; 80053; 81001; 81003; 82533; 83605; 83690; 83735; 83880; 84100; 84132; 84300; 84443; 84484; 84550; 85014; 85018; 85025; 85610; 93005; 94640; 94762; 96365; 96375; 99232; 99285; J0171; J0330; J0690; J1100; J1885; J2270; J2405; J2919; J3010; J3475; J3490; J7613; Q9967